=== PATIENT | male | born 1950 | race Caucasian/White ===

== ENCOUNTER 2017-02-10 18:12 | Emergency (ER) | payer MEDICARE, OTHER ==
[2017-06-10] MEDS ORDERED: BUSPIRONE HCL15 MG PO (17:36)
[2017-06-10] MEDS ORDERED: REMERON15 MG PO (17:36)
[2017-06-10] MEDS ORDERED: BENTYL10 MG PO (17:36)
[2017-06-10] MEDS ORDERED: ATORVASTATIN CA80 MG PO (17:37)
[2017-06-10] MEDS ORDERED: LASIX20 MG PO (17:37)
[2017-06-10] MEDS ORDERED: PROTONIX 40MG T40 MG PO (17:37)
[2017-06-10] MEDS ORDERED: IMDUR 30MG TABL30 MG PO (17:37)
[2017-06-10] MEDS ORDERED: MAG-OXIDE 400M400 MG PO (17:37)
[2017-06-10] MEDS ORDERED: COREG 3.125M3.125 MG PO (17:37)
[2017-06-10] MEDS ORDERED: DUONEB 2.5-0.5M1 AMP NEB (17:38)
[2017-06-10] MEDS ORDERED: MYLICON80 MG PO (17:38)
[2017-06-10] MEDS ORDERED: TRINTELLIX PO (17:38)
[2017-06-10] MEDS ORDERED: EFFIENT10 MG PO (17:38)
[2017-06-10] MEDS ORDERED: ASPIRIN CHEWABL81 MG PO (17:38)
[2017-06-10] MEDS ORDERED: ZOFRAN4 MG PO (17:39)
[2017-06-10] MEDS ORDERED: VITAMIN D50000 UNIT PO (17:39)
[2017-06-10] MEDS ORDERED: MIRALAX17 GM PO (17:39)
[2017-06-10] MEDS ORDERED: NITROSTAT0.4 MG SL (17:39)
== END 2017-02-10 19:38 | disposition left against medical advice (07) ==
LOC: FER 18:12
DX: R11.0 Nausea (principal); R10.9 Unspecified abdominal pain; R03.1 Nonspecific low blood-pressure reading; Z53.8 Procedure and treatment not carried out for other reasons

== ENCOUNTER 2017-03-15 13:17 | Emergency (ER) | payer MEDICARE, OTHER ==
[2017-03-15 13:56] LABS: BASOPHIL 0.7 % (0-2); EOSINOPHIL 6.1 % (0-7); HCT 40.6 % (42.0-52.0); HGB 12.9 g/dl (13.2-18.0); LYMPHOCYTE 12.6 % (15-48); MCH 27.4 pg (25.0-31.0); MCHC 31.8 g/dL (32.0-36.0); MCV 86.4 fL (78.0-100.0); MONOCYTE 13.2 % (0-12); MPV 9.1 fL (6.0-9.5); NEUTROPHIL 67.4 % (41-80); PLT 234 K/uL (150-400); RDW 14.9 % (11.5-14.0); WBC 10.8 K/uL (4.0-10.5)
[2017-03-15 14:14] LABS: BILIRUBIN - TOTAL 0.5 mg/dL (0.1-1.0); CREATININE 1.9 mg/dL (0.7-1.2); GLOBULIN (CALCULATION) 3.5 g/dL (2.2-4.2); POTASSIUM 4.7 mmol/L (3.5-5.1); TOTAL PROTEIN 7.5 g/dL (6.4-8.3)
[2017-06-10] MEDS ORDERED: REMERON15 MG PO (17:36)
[2017-06-10] MEDS ORDERED: BUSPIRONE HCL15 MG PO (17:36)
[2017-06-10] MEDS ORDERED: BENTYL10 MG PO (17:36)
[2017-06-10] MEDS ORDERED: IMDUR 30MG TABL30 MG PO (17:37)
[2017-06-10] MEDS ORDERED: MAG-OXIDE 400M400 MG PO (17:37)
[2017-06-10] MEDS ORDERED: COREG 3.125M3.125 MG PO (17:37)
[2017-06-10] MEDS ORDERED: ATORVASTATIN CA80 MG PO (17:37)
[2017-06-10] MEDS ORDERED: PROTONIX 40MG T40 MG PO (17:37)
[2017-06-10] MEDS ORDERED: LASIX20 MG PO (17:37)
[2017-06-10] MEDS ORDERED: DUONEB 2.5-0.5M1 AMP NEB (17:38)
[2017-06-10] MEDS ORDERED: ASPIRIN CHEWABL81 MG PO (17:38)
[2017-06-10] MEDS ORDERED: MYLICON80 MG PO (17:38)
[2017-06-10] MEDS ORDERED: TRINTELLIX PO (17:38)
[2017-06-10] MEDS ORDERED: EFFIENT10 MG PO (17:38)
[2017-06-10] MEDS ORDERED: VITAMIN D50000 UNIT PO (17:39)
[2017-06-10] MEDS ORDERED: ZOFRAN4 MG PO (17:39)
[2017-06-10] MEDS ORDERED: MIRALAX17 GM PO (17:39)
[2017-06-10] MEDS ORDERED: NITROSTAT0.4 MG SL (17:39)
== END 2017-03-15 15:05 | disposition home or self-care (01) ==
LOC: FER 13:17
PROVIDERS: Internal Medicine
DX: J44.9 Chronic obstructive pulmonary disease, unspecified (principal); J20.9 Acute bronchitis, unspecified; E78.5 Hyperlipidemia, unspecified; I10 Essential (primary) hypertension; Z99.81 Dependence on supplemental oxygen; Z79.82 Long term (current) use of aspirin; Z79.899 Other long term (current) drug therapy
CPT/HCPCS: 36415; 36600; 71010; 80053; 82803; 84484; 85025; 93005; 94640; J2930